=== PATIENT | female | born 1960 | race Caucasian/White ===

== ENCOUNTER 2017-08-23 13:21 | Emergency (ER) | payer BC ==
[2017-08-23 14:47] VITALS: BP 127/82
[2017-08-23] MEDS ORDERED: Benzonatate CAP* 100 MG PO ONE (16:58)
--- NOTE | 2017-08-23 16:58 | UC ---
Respiratory Complaint HPI - HPI Summary HPI Summary: Cough, congestion, for about 5 days. The cough is dry. There is no fever in the last two days. She has no chronic lung disease. Grandchildren were sick recently. 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 Associated Signs And Symptoms: Positive: URI, Nasal Congestion. Negative: Fever , Chills, Calf Pain, Calf Swelling - Allergies/Home Medications Allergies/Adverse Reactions: Allergies Allergy/AdvReac Type Severity Reaction Status Date / Time Erythromycin AdvReac Intermediate GI Upset Verified 08/23/17 14:48 Home Medications: Home Medications Omeprazole CAP* [Prilosec CAP* 20 MG] 08/23/17 [History] PMH/Surg Hx/FS Hx/Imm Hx Previously Healthy: No - GERD. - Surgical History Surgical History: None - Family History Known Family History: Positive: Other - Grandchild had pneumonia. - Social History Lives: With Family Alcohol Use: None Substance Use Type: None Smoking Status (MU): Never Smoked Tobacco - Immunization History Most Recent Influenza Vaccination: CURRENT Review of Systems ENT: Sinus Congestion Respiratory: Cough All Other Systems Reviewed And Are Negative: Yes Physical Exam Triage Information Reviewed: Yes Appearance: Well-Appearing, No Pain Distress, Well-Nourished Vital Signs: Initial Vital Signs Temp 98.3 F 08/23/17 14:42 Pulse 100 08/23/17 14:42 Resp 18 08/23/17 14:42 BP 127/82 08/23/17 14:42 Pulse Ox 99 08/23/17 14:42 Vital Signs Reviewed: Yes Eyes: Positive: Conjunctiva Clear. Negative: Conjunctiva Inflamed ENT: Positive: Normal ENT inspection, Pharynx normal, Nasal congestion, Uvula midline. Negative: Tonsillar swelling, Tonsillar exudate, Trismus, Muffled voice, Sinus tenderness Neck: Positive: Supple, Nontender, No Lymphadenopathy Respiratory: Positive: Lungs clear, Normal breath sounds, No respiratory distress, No accessory muscle use, Respiratory distress. Negative: Decreased breath sounds, Accessory muscle use, Crackles, Rhonchi, Stridor, Wheezing Cardiovascular: Positive: RRR, No Murmur, Pulses Normal Abdomen Description: Positive: Nontender, No Organomegaly, Soft. Negative: Distended, Guarding Musculoskeletal: Positive: Strength Intact, ROM Intact, No Edema Neurological: Positive: Alert, Muscle Tone Normal. Negative: Fatigued Psychological: Positive: Age Appropriate Behavior Skin: Negative: rashes UC Diagnostic Evaluation - Laboratory O2 Sat by Pulse Oximetry: 99 Respiratory Course/Dx - Course Course Of Treatment: This is most c/w viral bronchitis. THere are no clinical signs of pneumonia. Supportive care described in detail. She will start z pack if not better in 4-5 days. - Differential Dx/Diagnosis Provider Diagnoses: viral bronchitis. Discharge - Discharge Plan Condition: Good Disposition: HOME Prescriptions: Acetaminop/Codeine 30 MG TAB* [Tylenol/Codeine 30 MG TAB*] 1 tab PO Q8H PRN #21 tab MDD 3 PRN Reason: Cough Azithromyxin MELINDA (NF) [Z-Melinda (Zithromax) 250 mg tabs #6] 2 tab PO .TODAY, THEN 1 DAILY #6 tab Benzonatate [TESSALON 200 MG CAP] 200 mg PO TID #21 cap Patient Education Materials: Acute Bronchitis (ED) Referrals: Yael Samaniego MD [Primary Care Provider] - Additional Instructions: vics vapo rub, delsum, steamy shower before bed. Add tessalon perles and tylenol with codeine if needed. If not improved in 4-5 days, start Azithromcin.
== END 2017-08-23 17:02 | disposition home or self-care (01) ==
LOC: UCCORT 13:21
DX: J20.8 Acute bronchitis due to other specified organisms (principal); K21.9 Gastro-esophageal reflux disease without esophagitis; Z88.1 Allergy status to other antibiotic agents
CPT/HCPCS: 99202; A9270-GY; G0463

== ENCOUNTER 2019-09-30 10:26 | Emergency (ER) | payer BC ==
--- NOTE | 2019-09-30 12:20 | UC ---
Respiratory Complaint HPI - HPI Summary HPI Summary: 58 y/o female presents to the urgent care c/o dry cough that returned 2 days ago w/ body aches, PND, nasal congestion and fatigue. Pt reports She developed a cough a the end of 07/2019. She has seen her PCP several times during 08/2019 and was Rx Socorro, and albuterol inhaler and told was a possible allergy secondary to mold exposure in 07/2019. Cough seemed to improved w/ this mediations. However, it seems it returned. Now she is concerned w/ influenza. Pt denies sore throat, but has a lot of PND clear and cough is worse when laying down or at night time. Pt denies fever, SOB, wheezing, chest pain, dizziness, abdominal pain, N/V/d. - History of Current Complaint Stated Complaint: COUGH,TIREDNESS Time Seen by Provider: 09/30/19 12:19 Hx Obtained From: Patient ?: No - Menopausal Onset/Duration: Gradual Onset, Lasting Days - 3 days, Still Present Timing: Intermittent Episodes Severity Initially: Mild Severity Currently: Mild Pain Intensity: 2 - HONG Pain Scale Used: 0-10 Numeric Character: Cough: Nonproductive Aggravating Factors: Recumbent Position Alleviating Factors: Other - Tylenol/ Ibuprofen PO Associated Signs And Symptoms: Positive: Chills, URI, Nasal Congestion - clear, Sinus Discomfort. Negative: Dyspnea, Fever, Wheezing, Hemoptysis, Calf Pain - Allergies/Home Medications Allergies/Adverse Reactions: Allergies Allergy/AdvReac Type Severity Reaction Status Date / Time erythromycin base AdvReac Intermediate GI Upset Verified 09/30/19 12:33 PMH/Surg Hx/FS Hx/Imm Hx Previously Healthy: Yes GI/ History: Gastroesophageal Reflux - Surgical History Surgical History: None - Family History Known Family History: Positive: Diabetes, Other - Grandchild had pneumonia. - Social History Occupation: Employed Full-time Lives: With Family Alcohol Use: None Substance Use Type: None Smoking Status (MU): Never Smoked Tobacco - Immunization History Most Recent Influenza Vaccination: CURRENT Review of Systems All Other Systems Reviewed And Are Negative: Yes Constitutional: Positive: Chills, Fatigue, Other - body aches Skin: Positive: Negative Eyes: Positive: Negative ENT: Positive: Nasal Discharge - clear, Sinus Congestion, Other - moderate PND Respiratory: Positive: Cough - dry Cardiovascular: Positive: Negative Gastrointestinal: Positive: Negative Genitourinary: Positive: Negative Motor: Positive: Negative Neurovascular: Positive: Negative Musculoskeletal: Positive: Myalgia Neurological: Positive: Headache - mild Psychological: Positive: Negative Is Patient Immunocompromised?: No Physical Exam - Summary Physical Exam Summary: VITAL SIGNS: Reviewed. GENERAL: Patient is a well developed and nourished female who is sitting comfortably in the examining table. Patient is not in any acute respiratory distress. HEAD AND FACE: No signs of trauma. No ecchymosis, hematomas or skull depressions. No sinus tenderness. EYES: PERRLA, EOMI x 2, No injected conjunctiva, no nystagmus. No photophobia. EARS: Hearing grossly intact. Ear canals and tympanic membranes are within normal limits. MOUTH: Positive pharynx with mild erythema, no exudates, No B/L tonsillar enlargement , no exudate. Uvula in midline. edematous nasal mucosa w/ clear nasal discharge, clear PND NECK: Supple, trachea is midline, Positive anterior cervical lymphadenopathy, no JVD, no carotid bruit, no c-spine tenderness, neck with full ROM. No meningeal signs, no Kernig's or brudzinskis signs. CHEST: Symmetric, no tenderness at palpation LUNGS: Clear to auscultation bilaterally. No wheezing or crackles. CVS: Regular rate and rhythm, S1 and S2 present, no murmurs or gallops appreciated. ABDOMEN: Soft, non-tender. No signs of distention. No rebound no guarding, and no masses palpated. Bowel sounds are normal. EXTREMITIES: FROM in all major joints, no edema, no cyanosis or clubbing. NEURO: Alert and oriented x 3. No acute neurological deficits. Pt follows commands. SKIN: Dry and warm Triage Information Reviewed: Yes Respiratory Course/Dx - Course Course Of Treatment: 58 y/o female presents to the urgent care c/o dry cough that returned 2 days ago w/ body aches, PND, nasal congestion and fatigue. Pt reports She developed a cough a the end of 07/2019. She has seen her PCP several times during 08/2019 and was Rx Socorro, and albuterol inhaler and told was a possible allergy secondary to mold exposure in 07/2019. Cough seemed to improved w/ this mediations. However, it seems it returned. Now she is concerned w/ influenza. Pt denies sore throat, but has a lot of PND clear and cough is worse when laying down or at night time. Pt denies fever, SOB, wheezing, chest pain, dizziness, abdominal pain, N/V/d. Hx obtained. Pt w/ URI on examination. Influenza A&B ordered: result: negative. Pt Rx Tessalon tabs PO to alleviates cough symptoms. Advised to continue taking Socorro and the nasal spray she has at home to alleviate sinus congestion. Also advised on hand washing. Pt advised to rest, increase fluid intake, eat well and avoid strenuous exercise. If symptoms do not improve or worsen advised to return to the urgent care or f/u with her PCP for further evaluation and treatment. D/C instructions explained. Pt understood and agreed with plan of care. - Differential Dx/Diagnosis Differential Diagnosis/HQI/PQRI: Asthma, Bronchitis, Influenza, Laryngitis, Lower Resp Infection, Sinusitis, Other - pneumonia, allergic rhinitis Provider Diagnosis: Upper respiratory infection, Cough Discharge ED - Sign-Out/Discharge Documenting (check all that apply): Patient Departure - d/c home All imaging exams completed and their final reports reviewed: No Studies - Discharge Plan Condition: Stable Disposition: HOME Prescriptions: Benzonatate CAP* [Tessalon 100 MG CAP*] 100 mg PO TID PRN #21 cap PRN Reason: Cough Fluticasone NASAL SPRAY 50MCG* [Flonase NASAL SPRAY 50MCG*] 2 spray BOTH NARES DAILY #1 btl Patient Education Materials: Upper Respiratory Infection (ED) Referrals: Yael Samaniego MD [Primary Care Provider] - 3 Days Additional Instructions: 1-Take Tessalon PO tabs as directed and use the albuterol inhaler to alleviate cough. Increase fluid intake, rest and eat well. 2-Use Flonase as directed to help drain fluid. Also buy saline drops to clear sinuses 3-Continue taking Tylenol PO or Ibuprofen PO q6-8hrs prn after meals to alleviate HONG, pain, or fever. 4-Please f/u w/ your PCP in 3 days if symptoms do not improve for further management and treatment - Billing Disposition and Condition Condition: STABLE Disposition: Home - Attestation Statements Provider Attestation: I was available for consult. This patient was seen by the HENRIETTA. The patient was not presented to, seen by, or examined by me. -Tammi
[2019-09-30 12:33] VITALS: BP 108/69
[2019-09-30 12:54] LABS: Influenza A Molecular Negative (Negative); Influenza B Molecular Negative (Negative)
== END 2019-09-30 13:05 | disposition home or self-care (01) ==
LOC: UCCORT 10:26
DX: J06.9 Acute upper respiratory infection, unspecified (principal); R05 Cough; Z88.1 Allergy status to other antibiotic agents
CPT/HCPCS: 99212; G0463